=== PATIENT | female | born 1980 | race Caucasian/White ===

== ENCOUNTER 2025-01-17 10:37 | Outpatient (CLI) | payer MEDICAID ==
[~2025-01-17 10:37] MED LIST: PRED20TA PO
--- NOTE | 2025-01-17 12:20 | RADIOLOGY REPORT ---
EXAM: DI KNEE, COMP 4 VW MIN HISTORY: BILAT CHRONIC KNEE PAIN COMPARISON: None TECHNIQUE: 3 views of the right knee were performed. FINDINGS: No fracture or significant degenerative changes are identified about the right knee. There is patella Silva. No lateral patellar tilt or subluxation on the sunrise view. No evidence of significant joint effusion. IMPRESSION: 1. No fracture or significant degenerative changes of the right knee. 2. Patella Silva which may be developmental or due to patellar tendon injury. Consider follow-up nonc ontrast MRI of the right knee for further evaluation.
--- NOTE | 2025-01-17 12:21 | RADIOLOGY REPORT ---
Technique: Real-time ultrasound images through the pelvis using a transabdominal transducer. For bett er evaluation of the ovaries and endometrial stripe, an endovaginal transducer was used. Indication: VAGINAL PAIN Comparison: None Findings: Uterus, ovaries removed. No free fluid seen. . No sonographic evidence for pelvic/adnexal region mass. Bladder moderately distended, measuring 6.9 x 4.1 by 5.4 cm. Impression: Hysterectomy, oophorectomy. No free pelvic fluid.
--- NOTE | 2025-01-17 12:37 | RADIOLOGY REPORT ---
EXAM: DI KNEE, COMP 4 VW MIN HISTORY: BILAT CHRONIC KNEE PAIN COMPARISON: None TECHNIQUE: 3 views of the right knee were performed. FINDINGS: No fracture or significant degenerative changes are identified about the right knee. There is borderl ine patella jeison. No lateral patellar tilt or subluxation on the sunrise view. No evidence of signifi cant joint effusion. IMPRESSION: No fracture or significant degenerative changes of the left knee.
== END 2025-01-17 23:59 | disposition home or self-care (01) ==
LOC: US 10:37
PROVIDERS: ATTEND Nurse Practitioner Family
DX: R10.2 Pelvic and perineal pain (principal); Z90.710 Acquired absence of both cervix and uterus; Z90.722 Acquired absence of ovaries, bilateral
CPT/HCPCS: 73564; 76856